=== PATIENT | female | born 1940 ===

== ENCOUNTER 2018-10-27 09:17 | Emergency (ER) | payer MEDICARE, OTHER ==
[2018-10-27 09:26] VITALS: BP 145/94; PULSE 98; RESP 20; O2SAT 99
[2018-10-27 09:46] VITALS: TEMP 98
--- NOTE | 2018-10-27 10:22 | C.PDOC ---
History Of Present Illness 77 y/o female BIBA for evaluation after she was found walking outside on [facility] [address] while wearing house dress and slippers on the street. [facility] was notified and EMS brought her in ER. Family members have been notified, they are on their way to the ER. Patient is having difficulty giving her name and age. Time Seen by Provider: 10/27/18 09:50 Chief Complaint (Nursing): Medical Clearance History Per: Patient History/Exam Limitations: no limitations, other (poor historian) Past Medical History Reviewed: Historical Data, Nursing Documentation, Vital Signs Vital Signs: Last Vital Signs Temp 98 F 10/27/18 09:20 Pulse 98 H 10/27/18 09:25 Resp 20 10/27/18 09:25 BP 145/94 H 10/27/18 09:25 Pulse Ox 99 10/27/18 09:25 - Medical History PMH: No Chronic Diseases Surgical History: No Surg Hx Family History: States: No Known Family Hx - Social History Hx Alcohol Use: No Hx Substance Use: No Review Of Systems Constitutional: Negative for: Fever, Chills Physical Exam - Physical Exam Appears: Non-toxic, No Acute Distress, Other (elderly) Skin: Warm, Dry Head: Atraumatic, Normacephalic Eye(s): bilateral: Normal Inspection Cardiovascular: Rhythm Regular Respiratory: Normal Breath Sounds, No Rales, No Rhonchi, No Wheezing Extremity: Normal ROM Neurological/Psych: Oriented x3, Normal Speech ED Course And Treatment O2 Sat by Pulse Oximetry: 99 (RA) Pulse Ox Interpretation: Normal Medical Decision Making Medical Decision Making: pt in no acute distrress. family members in ed to hot die picker pt. discussed with Dr Espino, will get patient into ooffice this well. also spoke to manager social work from hospital who will contact daughter Deann Penn. Disposition Counseled Patient/Family Regarding: Diagnosis, Need For Followup - Disposition Referrals: Teressa Espino MD [Staff Provider] - Disposition: HOME/ ROUTINE Disposition Time: 10:23 Condition: STABLE Additional Instructions: Follow up with Dr Espino in 1-2 days. Return for any worse symptoms. Forms: [employer] (Faroese), Gen Discharge Inst [place], [employer] ([place]) - Clinical Impression Clinical Impression: Medical assessment - PA / BOOKSTORE MANAGER / Resident Statement MD/DO has reviewed & agrees with the documentation as recorded. - Scribe Statement The provider has reviewed the documentation as recorded by the Scribe Radha Osullivan Provider Attestation All medical record entries made by the Bijanibrosalia were at my direction and personall y dictated by me. I have reviewed the chart and agree that the record accurately reflects my personal performance of the history, physical exam, medical decision making, and the department course for this patient. I have also personally directed, reviewed, and agree with the discharge instructions and disposition.
== END 2018-10-27 10:32 | disposition home or self-care (01) ==
LOC: MERGE 09:17 → C.ER 09:17 → EDBD 09:17 → C.ER 10:32
DX: Z00.00 Encounter for general adult medical examination without abnormal findings (principal)